=== PATIENT | female | born 1995 | race Caucasian/White ===

== ENCOUNTER 2018-12-02 20:17 | Inpatient (IN) | payer OTHER ==
[~2018-12-02] VITALS: Ht 165.1 cm; Wt 86.0 kg
[2018-12-02] MEDS ORDERED: birth control PO (20:28)
[2018-12-02 20:45] LABS: HEMATOCRIT 36.5 % (36.0-47.0); HEMOGLOBIN 11.9 g/dl (12.0-15.5); MEAN CORPUSCULAR HGB CONC 32.6 g/dl (32.0-36.5); MEAN CORPUSCULAR VOLUME 85.9 fl (80.0-96.0); PLATELET COUNT, AUTOMATED 414 10^3/uL (150-450); RED BLOOD COUNT 4.25 10^6/uL (4.00-5.40); WHITE BLOOD COUNT 10.1 10^3/uL (4.0-10.0)
[2018-12-02 21:02] LABS: HCG, SERUM QUALITATIVE NEGATIVE (NEGATIVE)
[2018-12-02 21:04] LABS: AMPHETAMINES LEVEL URINE NEGATIVE (NEGATIVE); BARBITURATES URINE NEGATIVE (NEGATIVE); BENZODIAZEPINES URINE NEGATIVE (NEGATIVE); CANNABINOIDS URINE NEGATIVE (NEGATIVE); COCAINE METABOLITE URINE NEGATIVE (NEGATIVE); METHADONE URINE NEGATIVE (NEGATIVE); OPIATES URINE NEGATIVE (NEGATIVE); PHENCYCLIDINE URINE NEGATIVE (NEGATIVE)
[2018-12-02 21:11] LABS: BLOOD UREA NITROGEN 12 MG/DL (7-18); CALCIUM LEVEL 9.5 MG/DL (8.5-10.1); CARBON DIOXIDE LEVEL 24 MEQ/L (21-32); CHLORIDE LEVEL 106 MEQ/L (98-107); CREATININE FOR GFR 0.95 MG/DL (0.55-1.30); GLOMERULAR FILTRATION RATE > 60.0 (>60); GLUCOSE, FASTING 93 MG/DL (70-100); POTASSIUM SERUM 3.7 MEQ/L (3.5-5.1); SODIUM LEVEL 138 MEQ/L (136-145)
[2018-12-02 21:12] LABS: ACETAMINOPHEN LEVEL < 2.0 UG/ML (10.0-30.0); ALBUMIN 4.1 GM/DL (3.2-5.2); ALT/SGPT 17 U/L (12-78); BILIRUBIN,DIRECT 0.1 MG/DL (0.0-0.2); BILIRUBIN,TOTAL 0.5 MG/DL (0.2-1.0); ETHYL ALCOHOL (ETHANOL) < 0.003 % (0.000-0.010); SALICYLATE LEVEL < 1.7 MG/DL (5.0-30.0); TOTAL PROTEIN 8.5 GM/DL (6.4-8.2)
[2018-12-02] MEDS ORDERED: MAALOX 30 ML SUSP *UDC PO PRN (23:15)
[2018-12-02] MEDS ORDERED: traZODone 50 MG TAB PO PRN (23:15)
[2018-12-02] MEDS ORDERED: MOM 30ML SUSPENSION UDC PO PRN (23:15)
[2018-12-02] MEDS ORDERED: ACETAMINOPHEN TAB 650MG DOSE (2X325MG) PO PRN (23:15)
[2018-12-03 00:02] VITALS: BP 135/86
[2018-12-03 06:51] VITALS: BP 120/70
--- NOTE | 2018-12-03 09:45 | HPEPDOC ---
General Date of Admission Dec 02, 2018 at 23:11 Date of Service: Dec 03, 2018 Attending Physician: HERMINIA ORTA MD Chief Complaint The patient is a 23-year-old female admitted with a reason for visit of E. Source: RN/ Exam Limitations: No limitations Timing/Duration: Week(s) Severity: Mild Associated Symptoms: Other (irregular menstrual cycle, foregetful, tearful) History of Present Illness Consultation received from inpatient mental health unit for medical clearance: Physical examination 23-year-old female seen today by medicine hospitalist, in inpatient mental health unit exam room for medical clearance. Patient is complaining of irregular menses with the last one being in October. She was remembering taking her oral contraceptive, Loestrin. She he states that she had a lot of stressors occurring at one time, with the main life stressors and the breakup of her boyfriend over the last few weeks. They have been together approximately 1- 1/2 years. Patient crying during the medical examination and interview process. She was suffering from lack of sleep due to the emotional stress with her relationship and other, forces that caused her to camp ground and load a gun to try to kill herself but her brother intervened. She arrived at [facility] ED by police escort due to attempted Suicide with firearm. She has significant medical histo ry of obesity, anxiety and depression. Home Medications No Active Prescriptions or Reported Meds Allergies Coded Allergies: No Known Allergies (Unverified , 12/02/18) Past Medical History Medical History See HPI Surgical History Right piloidal cyst removed, and bilateral neck cysts removed. Family History Significant Family History: Cancer (parents), Lung disease (asthma-sister) Social History * Smoker: current smoker, cigarettes Drugs: denies Recent Travel/Sick Contacts: Denies: Recent travel, Recent sick contacts Psychosocial History: Anxiety, Decreased mood, Karl SI and HI, Loose associations, Suicidal thoughts A-FIB/CHADSVASC A-FIB History Current/History of A-Fib/PAF?: No Review of Systems Constitutional: Reports: Fatigue, Lethargy; Denies: Chills, Fever, Malaise, Night Sweats, Weakness, Weight Loss, Other Eyes: Denies: Pain, Vision change, Conjunctivae inflammation, Eyelid inflammation, Redness, Other ENT: Denies: Head Aches, Ear Pain, Dysphagia, Sinus Congestion, Post Nasal Drip, Sore Throat, Epistaxis, Other Symptoms Skin: Denies: Rash, Lesions, Jaundice, Bruising, Itching, Dry, Breakdown, Nail Changes, Other Pulmonary: Denies: Dyspnea, Cough, Pleuritic Chest Pain, Other Symptoms Cardiovascular: Denies: Chest Pain, Palpitations, Orthopnea, Paroxysmal Noc. Dyspnea, Edema, Lt Headedness, Other Symptoms Gastrointestinal: Reports: Constipation; Denies: Nausea, Vomiting, Abdominal Pain, Diarrhea, Melena, Hematochezia, Other Symptoms Genitourinary: Reports: Dysuria, Frequency; Denies: Incontinence, Hematuria, Retention, Other Symptoms Hematologic: Denies: Bruising, Bleeding Excessively, Petecchia, Purpura, Enlarged Lymph Nodes, Other Hematologic Endocrine: Denies: Polydipsia, Polyphagia, Polyuria, Heat Intolerance, Cold Intolerance, Other Endocrine Sx Musculoskeletal: Denies: Neck Pain, Back Pain, Shoulder Pain, Arm Pain, Hand Pain, Leg Pain, Foot Pain, Joint Pain, Muscle Pain, Spasms, Other Symptoms Neurological: Denies: Weakness, Numbness, Incoordination, Change in speech, Confusion, Seizures, Other Symptoms Psych: Reports: Anxiety, Depression Physical Examination General Exam: Positive: Alert, Cooperative, Mild Distress Eye Exam: Positive: PERRLA, Conjunctiva & lids normal ENT Exam: Positive: Atraumatic, Mucous membr. moist/pink, Pharynx Normal, Tongue Midline, Nares Patent, Tympanic Membranes Normal, Ext Auditory Canal Nml Neck Exam: Positive: Supple, +2 carotid pulse wo bruit Chest Exam: Positive: Clear to auscultation, Normal air movement Heart Exam: Positive: Rate Normal, Regular Rhythm, Normal S1, Normal S2 Abdomen Exam: Positive: Normal bowel sounds, Soft, Tenderness (Hypogastric region bilateral) Extremity Exam: Positive: Normal pulses Skin Exam: Positive: Nl turgor and temperature Neuro Exam: Positive: Normal Gait, Strength at 5/5 X4 ext, Cranial Nerves 3-12 NL, Other (monotone speech, crying, and lugubrious) Psych Exam: Positive: Oriented x 3, Other (dejected mood ) Vital Signs Vital Signs Date Time Temp Pulse Resp B/P (MAP) Pulse Ox O2 Delivery O2 Flow Rate FiO2 12/03/18 06:51 97.3 91 16 120/70 (87) 10/28/19 00:02 100 Room Air Laboratory Data Labs 24H Laboratory Tests 2 12/02/18 20:32: Nucleated Red Blood Cells % (auto) 0.0, Anion Gap 8, Glomerular Filtration Rate > 60.0, Calcium Level 9.5, Total Bilirubin 0.5, Direct Bilirubin 0.1, Aspartate Amino Transf (AST/SGOT) 12, Alanine Aminotransferase (ALT/SGPT) 17, Alkaline Phosphatase 102, Total Protein 8.5H, Albumin 4.1, Albumin/Globulin Ratio 0.93L, Thyroid Stimulating Hormone (TSH) 1.840, Human Chorionic Gonadotropin, Qual NEGATIVE, Salicylates Level < 1.7L, Urine Opiates Screen NEGATIVE, Urine M ethadone Screen NEGATIVE, Acetaminophen Level < 2.0L, Urine Barbiturates Screen NEGATIVE, Urine Phencyclidine Screen NEGATIVE, Urine Amphetamines Screen NEGATIVE, Urine Benzodiazepines Screen NEGATIVE, Urine Cocaine Metabolite Screen NEGATIVE, Urine Cannabinoids Screen NEGATIVE, Ethyl Alcohol Level < 0.003 CBC/BMP Laboratory Tests 12/02/18 20:32 Problems (1) Suicidal ideation Status: Acute Discussed With: Nurse, Patient Problem Text: Suicidal Ideation-Acute Plan Continue to follow Mental Health Unit treatment plan Check labs: CBC with differential; CMP; UA due to increased urine frequency, dysuria Acute UTIacute Re-collect urine as lab has thrown away urine for culture and sensitivity, stat second UA collected and confirmed UTI Start patient on antibiotic, oral: Keflex 500 mg by mouth twice a day Increase water intake Monitor vital signs CBC with differential Culture sensitivity is pending Irregular menseson chronic POC hCG negative Patient to follow-up outpatient with her steel cutter to restart her oral contraceptiveshe has not taken her Loestrin due to her forgetting over a month. Had unprotected sex with her ex boyfriend. She may need to choose a different form of oral contraceptive to her she doesn't have to remember to take it. Prognosis: Good medically PPT prophylaxis not needed at this time because patient states she is having indigestion or heartburn DVT prophylaxislow risk to the patient ambulatory. However, we will continue to monitor by nurses for acute pain, redness, swelling and lower extremities. Will notify provider if this occurs Discharge: Pending. If labs are normal. Patient will be medically stable. Plan / VTE VTE Prophylaxis Ordered?: No VTE Exclusion Mechanical Proph: Low Risk for VTE VTE Exclusion Pharmacological: At Low Risk for VTE (ambulatory) Plan Diet: Continue Current Activity: Continue Current Medications: Start Antibiotics Diagnostics: Check Labs, Other Diagnostics (c/s urine) KEISHA LUCAS Dec 03, 2018 09:45
[2018-12-03 10:14] LABS: BASO % 0.2 % (0.0-1.0); EOS % 0.6 % (0.0-3.0); HEMOGLOBIN 11.9 g/dl (12.0-15.5); LYMPH # 1.7 10^3/uL (1.5-5.0); MEAN CORPUSCULAR HEMOGLOBIN 28.4 pg (27.0-33.0); MEAN CORPUSCULAR HGB CONC 33.1 g/dl (32.0-36.5); MEAN CORPUSCULAR VOLUME 85.9 fl (80.0-96.0); MONO # 0.7 10^3/uL (0.0-0.8); MONO % 11.3 % (0.0-5.0); NEUTROPHILS # 3.9 10^3/uL (1.5-8.5); NEUTROPHILS % 61.7 % (36.0-66.0); PLATELET COUNT, AUTOMATED 389 10^3/uL (150-450); RED BLOOD COUNT 4.19 10^6/uL (4.00-5.40); WHITE BLOOD COUNT 6.4 10^3/uL (4.0-10.0)
[2018-12-03 12:57] LABS: AMORPHOUS SEDIMENT MODERATE (NEGATIVE); APPEARANCE, URINE CLOUDY (CLEAR); BACTERIA, URINE AUTO 2+ (NEGATIVE); BILIRUBIN, URINE AUTO NEGATIVE (NEGATIVE); BLOOD, URINE BLOOD NEGATIVE (NEGATIVE); COLOR, URINE YELLOW (YELLOW); GLUCOSE, URINE (UA) AUTO NEGATIVE (NEGATIVE); KETONE, URINE AUTO 1+ mg/dL (NEGATIVE); LEUKOCYTE ESTERASE, URINE AUTO 3+ (NEGATIVE); MUCUS, URINE MODERATE (NEGATIVE); NITRITE, URINE AUTO NEGATIVE (NEGATIVE); PROTEIN, URINE AUTO NEGATIVE (NEGATIVE); RBC, URINE AUTO 6 /HPF (0-3); SPECIFIC GRAVITY URINE AUTO 1.026 (1.002-1.035); SQUAMOUS EPITHELIAL CELL UR AU 11 /HPF (0-6); UROBILINOGEN, URINE AUTO 0.2 mg/dL (0.0-2.0); WBC, URINE AUTO 31 /HPF (0-3)
[2018-12-03 16:00] VITALS: BP 124/69
--- NOTE | 2018-12-03 19:24 | MHHPEPDOC ---
[facility] History & Physical History and Physical DATE OF ADMISSION: Dec 02, 2018 at 23:11 Estela Rice New Patient Estela Rice Select Gender MRN: N/A Date of : MM/DD/YYYY Date of Service: 12/03/2018 Chief Complaint "I don't get to go home today? 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 The patient reports that she has had difficulty with depressed mood, loss of interest, fatigue and other difficulties with depression. She has not tried any psychiatric medications and appears to generally not understand the severity of her attempt. She reports having no previous history of attempts by multiple psychosocial stressors in the form of a recent breakup from boyfriend and she had collected his firearm loaded it and had been interrupted by her mother and brother who had brought her in for evaluation. She reported that she had felt jealous and possessive of her boyfriend and that when they had broken up, this had caused her to begin to contemplate killing herself. She reported significant depression on admission to the ER. She appears to have little understanding of her current situation and the severity of attentional attempt. Review Of Systems Depression: As above. Anxiety: The patient denies any excessive worry associated with physical symptoms. They deny any experience of discreet panic in the past. Nahomi: The patient denies any episodes of euphoria/dysphoria associated with decreased need for sleep, hedonism, talkatively or impulsivity lasting longer than 5 days. Psychotic: The patient denies any experiences of auditory or visual hallucinations. They deny any episodes of paranoia or delusional thinking in the past Trauma: The patient denies any traumatic events associated with nightmares or intrusive thoughts. Borderline: Screens positive for . Past Psychiatric History The patient reports no history of psychiatric admissions, medication trials or current follow up. Allergies Please see below. Family Psychiatric History Reportedly, her paternal grandfather had substance problems. No history of suicide or mental health problems in the family. Social History The patient is a certified nursing assistant instructor who currently have lived with her boyfriend until they had broken up on the day of admission. She is never with no children. She has no legal history. 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 She has graduated high school with honors. She is currently a student at [employer] for Nursing. She grew up with her parents divorce, but noticeably had a somewhat distant relation with parents after they had . She resided primarily with mother. She has 1 older sister and 2 younger siblings whom she reports a moderately good relationship with. Substance Abuse History The patient denies any excessive alcohol use, tobacco or illicit drug use, denies history of substance use treatment. Medical History Patient has no significant past medical history. Mental Status Examination General: Fair hygiene Speech: Spontaneous and fluid Thought processes: Linear and logical MSK: Smooth and coordinated gait, no signs of tremors or involuntary orofacial movements Thought content: Hopelessness Abstract reasoning, and computation: Intact Description of associations: Intact Description of abnormal or psychotic thoughts: Denies any suicidal or homicidal ideation. Denies any auditory or visual hallucinations. Does not appear to be responding to internal stimuli. Does not appear to be endorsing any bizarre or paranoid ideation. Judgment: Poor Insight: Poor Orientation: Alert and orientated 3 Cognition: Grossly normal Recent and remote memory: Intact Attention span and concentration: Intact Fund of knowledge: Adequate Mood: "okay" Affect: Profoundly dysthymic with a constricted range Diagnoses MDD, severe without psychotic features. Assessment and Plan MDD: Discussed with patient potential for medications and need for treatment. Patient declined medications. After discussing the risk, benefits and potential problems related without medication as well as several other medications, she wishes to engage in therapy at this time and see how it helps. Disposition Patient will need admission likely lasting longer than 2 midnights in order to treat her severe depression. Problem List 1. Depression. 2. Risk for suicide. 3. Ineffective coping. Initial Treatment Plan 1. Patient was admitted on a 9.39 legal status. 2. Complete history was obtained. 3. With patients permission, family will be contacted and database will be expanded. 4. Patients medication regimen will be reviewed and changed accordingly. 5. Patient will be provided with protected environment. 6. Patient will be treated with individual, group, and milieu therapies. 7. Patient will receive supportive psych-education. 8. Discharge planning will commence immediately. 9. Outpatient follow-up treatment will be strongly recommended. 10. The initial treatment plan will focus initially on: Estimated Length Of Stay 3 days. Time Spent 30 minutes. Vital Signs Vital Signs Date Time Temp Pulse Resp B/P (MAP) Pulse Ox O2 Delivery O2 Flow Rate FiO2 12/03/18 16:00 97.6 89 16 124/69 (87) 12/03/18 00:02 100 Room Air Laboratory Data 24H Labs Laboratory Tests 2 12/02/18 20:32: Nucleated Red Blood Cells % (auto) 0.0, Anion Gap 8, Glomerular Filtration Rate > 60.0, Calcium Level 9.5, Total Bilirubin 0.5, Direct Bilirubin 0.1, Aspartate Amino Transf (AST/SGOT) 12, Alanine Aminotransferase (ALT/SGPT) 17, Alkaline Phosphatase 102, Total Protein 8.5H, Albumin 4.1, Albumin/Globulin Ratio 0.93L, Thyroid Stimulating Hormone (TSH) 1.840, Human Chorionic Gonadotropin, Qual NEGATIVE, Salicylates Level < 1.7L, Urine Opiates Screen NEGATIVE, Urine Methadone Screen NEGATIVE, Acetaminophen Level < 2.0L, Urine Barbiturates Screen NEGATIVE, Urine Phencyclidine Screen NEGATIVE, Urine Amphetamines Screen NEGATIVE, Urine Benzodiazepines Screen NEGATIVE, Urine Cocaine Metabolite Screen NEGATIVE, Urine Cannabinoids Screen NEGATIVE, Ethyl Alcohol Level < 0.003 12/03/18 09:57: Nucleated Red Blood Cells % (auto) 0.0, Immature Granulocyte % (Auto) 0.2, Neutrophils (%) (Auto) 61.7, Lymphocytes (%) (Auto) 26.0, Monocytes (%) (Auto) 11.3H, Eosinophils (%) (Auto) 0.6, Basophils (%) (Auto) 0.2, Neutrophils # (Auto) 3.9, Lymphocytes # (Auto) 1.7, Monocytes # (Auto) 0.7, Eosinophils # (Auto) 0.0, Basophils # (Auto) 0.0 12/03/18 12:30: Urine Color YELLOW, Urine Appearance CLOUDYH, Urine pH 5.0, Urine Specific [place] 1.026, Urine Protein NEGATIVE, Urine Glucose (Auto)(UA) NEGATIVE, Urine Ketones (Auto) 1+H, Urine Blood NEGATIVE, Urine Nitrite NEGATIVE, Urine Bilirubin NEGATIVE, Urine Urobilinogen 0.2, Urine Leukocyte Esterase (Auto) 3+H, Urine WBC (Auto) 31H, Urine RBC (Auto) 6H, Urine Hyaline Casts (Auto) 1, Urine Bacteria (Auto) 2+H, Urine Squamous Epithelial Cells 11, Urine Amorphous Sediment (Auto) MODERATEH, Urine Mucus (Auto) MODERATE, Urine Sperm (Auto) 12/03/18 17:30: Urine Color YELLOW, Urine Appearance CLOUDYH, Urine pH 5.0, Urine Specific [place] 1.026, Urine Protein NEGATIVE, Urine Blood NEGATIVE, Urine Nitrite NEGATIVE, Urine Bilirubin NEGATIVE, Urine Urobilinogen 2.0H, Urine WBC (Auto) 36H, Urine RBC (Auto) 7H, Urine Hyaline Casts (Auto) 0, Urine Bacteria (Auto) 1+H, Urine Squamous Epithelial Cells 13, Urine Mucus (Auto) SMALL, Urine Sperm (Auto) , Urine Glucose (UA) NEGATIVE, Urine Ketones 1+H, Urine Leukocyte Esterase 3+H, Urine Calcium Oxalate Cryst (Auto) SMALL CBC/BMP Laboratory Tests 12/02/18 20:32 12/03/18 09:57 Medications No Active Prescriptions or Reported Meds Allergies Coded Allergies: No Known Allergies (Unverified , 12/02/18) ELIA FALCON DO Dec 03, 2018 19:24
--- NOTE | 2018-12-03 20:13 | ECGEPIP ---
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
[2018-12-03] MEDS: CEPHALEXIN 500 MG CAP PO SCH (20:33)
[2018-12-04 06:29] VITALS: BP 112/69
[2018-12-04] MEDS: CEPHALEXIN 500 MG CAP PO SCH ×2 (08:45→20:20)
[2018-12-04] MEDS ORDERED: NICOTINE 21MG/24HR 1 EA TRANSDERMAL TD SCH (09:00)
--- NOTE | 2018-12-04 11:26 | MHIPNPDOC ---
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 The patient reports that she has had difficulty with depressed mood, loss of interest, fatigue and other difficulties with depression. She has not tried any psychiatric medications and appears to generally not understand the severity of her attempt. She reports having no previous history of attempts by multiple psychosocial stressors in the form of a recent breakup from boyfriend and she had collected his firearm loaded it and had been interrupted by her mother and brother who had brought her in for evaluation. She reported that she had felt jealous and possessive of her boyfriend and that when they had broken up, this had caused her to begin to cont emplate killing herself. She reported significant depression on admission to the ER. She appears to have little understanding of her current situation and the severity of attentional attempt. Interval History The patient is met with. She reports that her depression is improving and that she has gained more insight into the events that led her. She was displeasured about not being able to leave and continues to request to be discharged. She reports that she has been doing well on the unit and denies any psychiatric symptoms at this time. No major behavioral problems. She has attended groups and has been social on the unit. Review Of Systems Denies any chest pain, shortness breath, GI upset, or other concerning symptoms. Psychotherapy None on this visit. Vital Signs Reviewed. Mental Status Examination General: Well dressed with good hygiene Speech: Spontaneous and fluid Thought processes: Linear and logical MSK: Smooth and coordinated gait, no signs of tremors or involuntary orofacial movements Thought content: Future orientated Abstract reasoning, and computation: Intact Description of associations: Intact Description of abnormal or psychotic thoughts: Denies any suicidal or homicidal ideation. Denies any auditory or visual hallucinations. Does not appear to be responding to internal stimuli. Does not appear to be endorsing any bizarre or paranoid ideation. Judgment: fair Insight: fair Orientation: Alert and orientated 3 Cognition: Grossly normal Recent and remote memory: Intact Attention span and concentration: Intact Fund of knowledge: Adequate Mood: "okay" Affect: Euthymic with a full range Diagnoses Unspecified depressive disorder. Rule out adjustment versus MDD. Assessment and Plan Unspecified depressive: Discussed with patient the need for medication, still declines. Discussed the risks, benefits, and potential problems of treatment without medications. Disposition Discharge tomorrow as no longer meets involuntary criteria. Time Spent 15 minutes [id number] Vital Signs Vital Signs Date Time Temp Pulse Resp B/P (MAP) Pulse Ox O2 Delivery O2 Flow Rate FiO2 12/04/18 06:29 98.1 73 12 112/69 (83) Room Air 12/03/18 00:02 100 Laboratory Data 24H Labs Laboratory Tests 2 12/03/18 12:30: Urine Color YELLOW, Urine Appearance CLOUDYH, Urine pH 5.0, Urine Specific [place] 1.026, Urine Protein NEGATIVE, Urine Glucose (Auto)(UA) NEGATIVE, Urine Ketones (Auto) 1+H, Urine Blood NEGATIVE, Urine Nitrite NEGATIVE, Urine Bilirubin NEGATIVE, Urine Urobilinogen 0.2, Urine Leukocyte Esterase (Auto) 3+H, Urine WBC (Auto) 31H, Urine RBC (Auto) 6H, Urine Hyaline Casts (Auto) 1, Urine Bacteria (Auto) 2+H, Urine Squamous Epithelial Cells 11, Urine Amorphous Sediment (Auto) MODERATEH, Urine Mucus (Auto) MODERATE, Urine Sperm (Auto) 12/03/18 17:30: Urine Color YELLOW, Urine Appearance CLOUDYH, Urine pH 5.0, Urine Specific [place] 1.026, Urine Protein NEGATIVE, Urine Blood NEGATIVE, Urine Nitrite NEGATIVE, Urine Bilirubin NEGATIVE, Urine Urobilinogen 2.0H, Urine WBC (Auto) 36H, Urine RBC (Auto) 7H, Urine Hyaline Casts (Auto) 0, Urine Bacteria (Auto) 1+H, Urine Squamous Epithelial Cells 13, Urine Mucus (Auto) SMALL, Urine Sperm (Auto) , Urine Glucose (UA) NEGATIVE, Urine Ketones 1+H, Urine Leukocyte Esterase 3+H, Urine Calcium Oxalate Cryst (Auto) SMALL Current Medications Current Medications Medications (Trade) Dose Ordered Sig/Dean Route PRN Reason Start Time Stop Time Status Last Admin Dose Admin Acetaminophen (Tylenol Tab) 650 mg Q6HP PRN PO HEADACHE or DISCOMFORT 12/02/18 23:15 Al Hydrox/Mg Hydrox/Simethicone (Mylanta) 30 ml Q4HP PRN PO HEARTBURN/INDIGESTION 12/02/18 23:15 Cephalexin Monohydrate (Keflex) 500 mg Q12H PO 12/03/18 21:00 12/04/18 08:45 Home Med (Med Rec Complete!) ASDIRECTED XX 12/02/18 22:00 12/02/18 21:59 DC Magnesium Hydroxide (Milk Of Magnesia) 30 ml DAILYPRN PRN PO CONSTIPATION 12/02/18 23:15 Nicotine (Nicoderm Cq 21mg) 1 patch DAILY TD 12/04/18 09:00 UNV Trazodone HCl (Desyrel) 50 mg QHSP PRN PO INSOMNIA 12/02/18 23:15 Allergies Coded Allergies: No Known Allergies (Unverified , 12/02/18) ELIA FALCON DO Dec 04, 2018 11:26
[2018-12-04 16:07] VITALS: BP 110/66
[2018-12-05 06:31] VITALS: BP 119/56
[2018-12-05] MEDS: CEPHALEXIN 500 MG CAP PO SCH (08:27)
--- NOTE | 2018-12-05 11:52 | MHDSPDOC ---
[facility] Discharge Summary Discharge Summary DATE OF ADMISSION: Dec 02, 2018 at 23:11 DATE OF DISCHARGE: 12/05/18 Discharge Estela Rice MRN: [id number] Date of : N/A Date of Service: 12/05/2018 Diagnoses Unspecified depressive disorder. Rule out adjustment versus MDD. 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 The patient reports that she has had difficulty with depressed mood, loss of interest, fatigue and other difficulties with depression. She has not tried any psychiatric medications and appears to generally not understand the severity of her attempt. She reports having no previous history of attempts by multiple psychosocial stressors in the form of a recent breakup from boyfriend and she had collected his firearm loaded it and had been interrupted by her mother and brother who had brought her in for evaluation. She reported that she had felt jealous and possessive of her boyfriend and that when they had broken up, this had caused her to begin to contemplate killing herself. She reported significant depression on admission to the ER. She appears to have little understanding of her current situation and the severity of attentional attempt. Consultants Involved Hospitalist/PCP screening Treatment and Progress On The Unit The patient was admitted to the unit. She was subsequently observed for 48 hours where it became clear that she had been denying any suicidal or homicidal ideation, did not appear to be impaired by depression significantly enough to be unable to care for herself. She requested discharge and on the day of discharge was discharged without any medications, as she had declined to try any psychiatric medications even after education and prompting by the treatment team. On the day of discharge, the patient did not meet involuntary criteria as she had requested to go, was not demonstrating any suicidal or homicidal ideations. During the entirety of her stay, she was able to engage in discharge planning, had some improved insight and in my clinical judgment could no longer be held against her will. She declined further voluntary admission and was discharged in good alberto. 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 She's discharged in good alberto after she makes progress on the unit. Mental Status Examination General: Well dressed with good hygiene Speech: Spontaneous and fluid Thought processes: Linear and logical MSK: Smooth and coordinated gait, no signs of tremors or involuntary orofacial movements Thought content: Future orientated Abstract reasoning, and computation: Intact Description of associations: Intact Description of abnormal or psychotic thoughts: Denies any suicidal or homicidal ideation. Denies any auditory or visual hallucinations. Does not appear to be responding to internal stimuli. Does not appear to be endorsing any bizarre or paranoid ideation. Judgment: fair Insight: fair Orientation: Alert and orientated 3 Cognition: Grossly normal Recent and remote memory: Intact Attention span and concentration: Intact Fund of knowledge: Adequate Mood: "okay" Affect: Euthymic with a full range Follow Up The social work team worked during the predischarge meeting in order to evaluate for further issues of lethality address them fully before discharge. They worked on safety planning with the patient's family members in order to ensure that the patient will have a safe and effective discharge. Time Spent The amount of time spent in the coordination of care for this patient was approximately 30 minutes. Monday Vital Signs/I&Os Vital Signs Date Time Temp Pulse Resp B/P (MAP) Pulse Ox O2 Delivery O2 Flow Rate FiO2 12/05/18 06:31 98.6 70 18 119/56 (77) 12/04/18 06:29 Room Air 12/03/18 00:02 100 Laboratory Data Microbiology Microbiology 12/03/18 Urine Culture - Final, Complete Escherichia Coli Medications No Active Prescriptions or Reported Meds Allergies Coded Allergies: No Known Allergies (Unverified , 12/02/18) ELIA FALCON DO Dec 05, 2018 11:52
== END 2018-12-05 11:20 | disposition home or self-care (01) | DRG 885 ==
LOC: M ED 20:17 → M ED INP 23:11 → M PSY 23:45
PROVIDERS: ADMIT Psychiatry & Neurology Psychiatry; ATTEND Psychiatry & Neurology Addiction Medicine
DX: F32.2 Major depressive disorder, single episode, severe without psychotic features (principal); R45.851 Suicidal ideations; F17.210 Nicotine dependence, cigarettes, uncomplicated; F41.9 Anxiety disorder, unspecified